=== PATIENT | male | born 1965 | race African-American/Black ===

== ENCOUNTER 2025-08-17 14:29 | Outpatient (AMB) | payer MEDICARE, MEDICAID, SELFPAY ==
--- NOTE | 2025-08-17 15:17 | A.OFFVIS_ITS ---
Intake Visit Reasons: 6M Allergies No Known Allergies Allergy (Verified 08/17/25 15:19) Medication List - Last Reconciled 08/17/25 by Loulou Galicia CNP aspirin 81 mg PO DAILY atorvastatin 10 mg PO DAILY dorzolamide 2% 1 drp ophthalmic (eye) TID glipizide 5 mg PO BID lisinopril 10 mg PO DAILY metformin 1,000 mg PO BID rizatriptan 10 mg PO topiramate 100 mg PO BID 90 days verapamil ER 240 mg PO DAILY HPI Comments Details: 60-year-old man with type II DM, HTN, remote h/o generalized seizure disorder, and severe headaches probably of migraine type. He was doing okay. No seizures. Migraines were controlled and happened infrequently. Rizatriptan as needed helped, has not had to take medication since 05/2025. Sleep was okay. Mood was okay. [facility] Medical History (Updated 08/17/25 @ 15:19 by Loulou Galicia CNP) Migraine Seizure disorder Review of Systems Const Denies chills, Denies daytime sleepiness, Denies difficulty sleeping, Denies fatigue, Denies fever(s), Denies frequent falls, Reports headache(s), Denies increased appetite, Denies poor appetite, Denies snoring, Denies weakness, Denies weight gain and Denies weight loss Eyes Denies loss of vision ENT Denies vertigo, Denies dizziness and Reports headache(s) Card Denies chest pain at rest, Denies chest pain with activity, Denies syncope, Denies leg edema and Denies palpitations Resp Denies snoring GI Denies constipation, Denies heartburn, Denies diarrhea and Denies nausea Denies urinary frequency, Denies urinary incontinence and Denies urinary urgency Musc Denies abnormal gait, Denies numbness and Denies tingling Skin/Breast Denies dry skin and Denies rash Neuro Denies abnormal gait, Denies vertigo, Denies dizziness, Denies syncope, Denies frequent falls, Reports headache(s), Denies lack of coordination, Denies loss of vision, Denies memory loss, Denies numbness, Denies restless legs, Denies seizure-like activity, Denies tingling, Denies paresthesias, Reports tremor(s) and Denies weakness Psych Denies anxiety, Denies depression, Denies auditory hallucinations, Denies memory loss, Denies visual hallucinations and Denies suicidal ideation Endo Denies fatigue and Denies palpitations Physical Exam Const Other: General Appearance:? normal, in no acute distress. Skin:? no rashes, no significant birthmarks. Heart:? S1, S2 normal, no murmurs. Lungs:? clear anteriorly and posteriorly. Extremities:? no edema. Psych:? alert, oriented, cognitive function intact, cooperative with exam. Neuro Other: Mental Status:?Normal attention, orientation, memory and affect.? Cranial Nerves:?Pupils are equal, round and reactive to light. External occular muscles are intact. Visual pressley are full. Face is symmetrical. Facial sensations are normal. Tongue is midline. Palate elevates symmetrically. Shoulder shrugging is normal. Hearing to bedside conversation is normal. Sensory Exam:?....? Coordination:?No ataxia,?no titubation.? Gait Exam: Within normal limits. Cerebellar Signs:?[id number]-[id number] and yidm-qr-[id number] is normal.? Extrapyramidal System:?No tremor, rigidity with normal facial expressions.? Pronator Drift:?Not present.? Involuntary Movements:?Mild bilateral hand tremor, atypical.? Speech:?Normal.? Assessment & Plan Assessment & Plan (1) Migraine: Code(s): G43.909 - Migraine, unspecified, not intractable, without status migrainosus Category: Medical Qualifiers: Migraine type: unspecified Status migrainosus presence: without status migrainosus Intractability: not intractable Qualified Code(s): G43.909 - Migraine, unspecified, not intractable, without status migrainosus Plan: Continue verapamil ER 240mg 1 tablet daily. Continue rizatriptan 10mg 1 tablet as needed. Follow up in 6 months or sooner as needed. (2) Seizure disorder: Code(s): G40.909 - Epilepsy, unspecified, not intractable, without status epilepticus Category: Medical Plan: Continue topiramate 100mg 1 tablet twice a day. Medications: New verapamil ER 240 mg PO DAILY 90 tabs 1RF 90 days rizatriptan take 1 tab at onset of headache; if no relief may repeat 1 tab after at least 4 hrs; max = 2 tabs/24 hr PO 10 tabs 5RF 30 days Discontinued rizatriptan Discontinued Reason: Order 10 mg PO Coding Level of Care Code Est Pt Level 4 (84947) Diagnoses Migraine without status migrainosus, not intractable, unspecified migraine type G43.909 Migraine type: unspecified Status migrainosus presence: without status migrainosus Intractability: not intractable Seizure disorder G40.909
--- OUTSIDE RECORDS SUMMARY | 2025-08-17 22:44 | XMS_ITS | Clinical Summary ---
Author Organization [facility] Address [address] [place] [address] Phone Care Team Providers Care Plow Shaker Name Role Phone Physician, No Pcp Primary Care Provider Unavaila ble Allergies No known active allergies Encounters Date Type Department Care Team Description 06/25/2025 10:00 AM EDT - 06/25/2025 4:57 PM EDT Emergency [facility] Emergency [address] [place] [address] Joseph Rock MD Flores, Carlos M, MD Hypoglycemia secondary to sulfonylurea, accidental or unintentional, initial encounter (Primary Dx) Discharge Disposition: Left Against Medical Advice from Last 3 Months Medical History Medical History Date Comments Diabetes mellitus (CMS/HCC V24, CMS/HCC V28) Social History Tobacco Use Types Packs/Day Years Used Date Smoking Tobacco: Never Smokeless Tobacco: Never Tobacco Cessation:Counseling Given: Not Answered Alcohol Use Standard Drinks/Week Comments Never 0 (1 standard drink = 0.6 oz pur e alcohol) Sex and Gender Information Value Date Recorded Sex Assigned at Not on file Legal Sex Male 7:48 AM EST Gender Identity Not on file Sexual Orientation Not on file Last Filed Vital Signs Vital Sign Reading Time Taken Comments Blood Pressure 182/90 06/25/2025 3:30 PM EDT Pulse 106 06/25/2025 3:30 PM EDT Temperature 36.7 C (98.1 F) 06/25/2025 3:30 PM EDT Respiratory Rate 20 06/25/2025 3:30 PM EDT Oxygen Saturation 100% 06/25/2025 3:30 PM EDT Inhaled Oxygen Concentration - - Weight 77.1 kg (170 lb) 06/25/2025 10:11 AM EDT Height 175.3 cm (5' 9 ) 06/25/2025 10:11 AM EDT Body Mass Index 25.1 06/25/2025 10:11 AM EDT Plan of Treatment Health Maintenance Due Date Last Done Comments Colorectal Cancer Screening: Colonoscopy 1966 Diabetes: Annual Foot Exam 02/20/1976 Diabetes: Annual Retina Eye Exam 02/20/1976 Pneumococcal Vaccine: 50+ Years (2 of 2 - PCV) 11/29/2023 11/28/2022, 01/23/2018 Depression Screening 09/08/2024 COVID-19 Vaccine ( - season) 2025 Influenza Vaccine (#1) 2025 , 08/28/2022, 08/13/2018, Additional history exists Diabetes: Annual Urine Albumin-Creatinine Ratio (uACR) 06/25/2025 04/14/2024, 01/26/2018 Diabetes: Blood Sugar Control Test (HGBA1C) 06/25/2025 04/14/2024 Hepatitis C Screening 06/25/2025 Medicare Annual Wellness Visit 06/25/2025 Social Influencers of Health Screening 06/25/2025 DTaP,Tdap,and Td Vaccines (2 - Td or Tdap) 01/23/2026 01/24/2016 Diabetes: Annual GFR (Glomerular Filtration Rate) 06/25/2026 06/25/2025, 04/14/2024 Hypertension/CHF/CAD Annual BMP Blood Test 06/25/2026 06/25/2025, 04/14/2024 Cholesterol Screening (Lipid Panel) 04/14/2029 04/14/2024, 04/14/2024, 08/28/2022, Additional history exists RSV Immunization Adult Patients (1 - 1-dose 75+ series) 2041 HIV Screening Completed 07/05/2014 Hepatitis B Vaccines Completed 12/07/2018, 06/18/2018, 05/13/2018 Zoster Vaccines Completed 10/10/2023, 11/28/2022 HIB Vaccines Aged Out No longer eligi ble based on patient's age to complete this topic HPV Vaccines Aged Out No longer eligi ble based on patient's age to complete this topic Hepatitis A Vaccines Aged Out No long er eligible based on patient's age to complete this topic IPV Vaccines Aged Out No longer eligi ble based on patient's age to complete this topic MMR Vaccines Aged Out No longer eligi ble based on patient's age to complete this topic Meningococcal ACWY Vaccine Aged Out N o longer eligible based on patient's age to complete this topic Meningococcal B Vaccine Aged Out No l onger eligible based on patient's age to complete this topic RSV Immunization Patients Under 20 months Aged Out No longer eligible based on patient's age to complete this topic Varicella Vaccines Aged Out No longer eligible based on patient's age to complete this topic Procedures Procedure Name Priority Date/Time Associated Diagnosis Comments POCT GLUCOSE BLOOD Routine 06/25/2025 4: 21 PM EDT POCT GLUCOSE BLOOD Routine 06/25/2025 3: 26 PM EDT POCT GLUCOSE BLOOD Routine 06/25/2025 2: 53 PM EDT POCT GLUCOSE BLOOD Routine 06/25/2025 12 :50 PM EDT POCT GLUCOSE BLOOD Routine 06/25/2025 10 :48 AM EDT CBC WITH AUTO DIFFERENTIAL STAT 06/25/2025 10:10 AM EDT MAGNESIUM STAT 06/25/2025 10:10 AM EDT COMPREHENSIVE METABOLIC PANEL STAT 06/25/2025 10:10 AM EDT CBC AND DIFFERENTIAL STAT 06/25/2025 10:10 AM EDT POCT GLUCOSE BLOOD Routine 06/25/2025 9: 57 AM EDT from Last 3 Months Results * POCT Glucose, blood (06/25/2025 4:21 PM EDT) Only the most recent of6 resultswithin the time period is included. [facility] Signature Glucose POCT 80 70 - 100 mg/dL 06/25/2025 4:22 PM EDT [facility] Blood Capillary blood specimen / Unknown 06/25/2025 4:21 PM EDT 06/25/2025 4:23 PM EDT Jarad Ortiz MD LAB POINT OF CARE TE ST DOCKED DEVICE UNSOLICITED RESULTS Final Result [facility] [address] [place] [address], * (ABNORMAL) CBC auto differential (06/25/2025 10:10 AM EDT) WBC 4.1(L) 4.8 - 10.8 K/mcL LAB [facility]OLOG[facility] RBC 4.40(L) 4.50 - 5.50 M/mcL LAB HEMETOLOGY METHOD 06/[facility]2025 [facility] Hemoglobin 11.5(L) 13.5 - 17.5 g/dL LAB HEMETOLOGY METHOD 06/25/2025 10:20 AM [facility] Hematocrit 36.3(L) 42.0 - 54.0 % LAB HEMETOLOGY METHOD 06/25/2025 10:20 AM [facility] MCV 81.9 79.0 - 98.0 FL LAB HEMETOLOGY METHOD 06/25/2025 10:20 AM [facility] MCH 26.0(L) 27.0 - 32.0 pcg LAB HEMETOLOGY METHOD 06/25/2025 10:20 AM [facility] MCHC 31.7(L) 32.0 - 37.0 g/dL LAB HEMETOLOGY METHOD 06/25/2025 10:20 AM [facility] RDW 15.0 11.0 - 15.0 % LAB HEMETOLOGY METHOD 06/25/2025 10:20 AM [facility] Platelets 180 130 - 400 K/mcL LAB HEMETOLOGY METHOD [facility]/25[facility]2025 [facility] MPV 10.8 7.0 - 11.0 FL LAB HEMETOLOGY METHOD 06/25/2025 10:20 AM [facility] NRBC 0.0 <1.0 % LAB HEMETOLOGY METHOD 06/25/2025 10:20 AM [facility] NRBC Absolute 0.00 <0.10 K/mcL LAB HEMETOLOGY METHOD 06/25/2025 10:20 AM [facility] Neutrophils Relative 68.2 % LAB HEMETOLOGY METHOD 06/25/2025 10:20 AM [facility] Lymphocytes Relative 19.4 % LAB HEMETOLOGY METHOD 06/25/2025 10:20 AM [facility] Monocytes Relative 11.7 % LAB HEMETOLOGY METHOD 06/25/2025 10:20 AM [facility] Eosinophils Relative 0.5 % LAB HEMETOLOGY METHOD 06/25/2025 10:20 AM [facility] Basophils Relative 0.0 % LAB HEMETOLOGY METHOD 06/25/2025 10:20 AM [facility] Immature Granulocytes Relative 0.2 % LAB HEMETOLOGY METHOD 06/25/2025 10:20 AM [facility] Neutrophils Absolute 2.81 1.50 - 7.00 K/mcL LAB HEMETOLOGY METHOD 06/25/2025 10:20 AM [facility] Lymphocytes Absolute 0.80(L) 1.00 - 5.00 K/mcL LAB HEMETOLOGY METHOD 06/25/2025 10:20 AM [facility] Monocytes Absolute 0.48 0.20 - 1.00 K/mcL LAB HEMETOLOGY METHOD 06/25/2025 10:20 AM EDT [facility] Eosinophils Absolute 0.02 0.00 - 0.50 K/[facility] HEMETOLOGY METHOD 06/25/2025 10:20 AM EDT [facility] Basophils Absolute 0.00 0.00 - 0.20 K/[facility] HEMETOLOGY METHOD 06/25/2025 10:20 AM EDT [facility] Immature Granulocytes Absolute 0.01 0.00 - 0.03 K/[facility] HEMETOLOGY METHOD 06/25/2025 10:20 AM EDT [facility] Blood Venous blood specimen / Unknown Venipuncture / Unknown 06/25/2025 10:10 AM EDT 06/25/2025 10:15 AM EDT Joseph Rock MD LAB BLOOD ORDERABLES Final Resul t Performing Organization Address City/[facility]/ZIP Co de Phone Number [facility] [address] [place] [address], [place] [phone] * (ABNORMAL) Magnesium (06/25/2025 10:10 AM EDT) Magnesium 1.6(L) 1.9 - 2.6 mg/dL LAB CHEMISTRY METHOD 06/25/2025 10:52 AM EDT [facility] Blood Venous blood specimen / Unknown Venipuncture / Unknown 06/25/2025 10:10 AM EDT 06/25/2025 10:15 AM EDT Joseph Rock MD LAB BLOOD ORDERABLES Final Resul t [facility] [address] [place] [address], [place] [phone] * (ABNORMAL) Comprehensive metabolic panel (06/25/2025 10:10 AM EDT) Sodium 138 133 - 145 mmol/L LAB CHEMISTRY METHOD 06/25/2025 10:53 AM [facility] Potassium 3.9 3.5 - 5.5 mmol/L LAB CHEMISTRY METHOD 06/25/2025 10:53 AM [facility] Chloride 110 96 - 110 mmol/L LAB CHEMISTRY METHOD 06/25/2025 10:53 AM [facility] CO2 20(L) 21 - 32 mmol/L LAB CHEMISTRY METHOD 06/25/2025 10:53 AM [facility] Anion Gap 8 3 - 11 LAB CHEMISTRY METHOD 06/25/2025 10:53 AM [facility] Glucose 163(H) 70 - 100 mg/dL LAB CHEMISTRY METHOD 06/25/2025 10:53 AM [facility] BUN 13 5 - 25 mg/dL LAB CHEMISTRY METHOD 06/25/2025 10:53 AM [facility] Creatinine 0.60(L) 0.70 - 1.30 mg/dL LAB CHEMISTRY METHOD 06/25/2025 10:53 AM [facility] eGFR 111 >=60 mL/min/1. 73m2 LAB CHEMISTRY METHOD 06/25/2025 10:53 AM [facility] Comment:Calculation based on the Chronic Kidney Disease Epidemiology Collaboration (CKD-EPI) equation refit without adjustment for race. BUN/Creatinine Ratio 21.7 LAB CHEMISTRY METHOD 06/25/2025 10:53 AM [facility] Calcium 8.6 8.5 - 10.5 mg/dL LAB CHEMISTRY METHOD 06/25/2025 10:53 AM [facility] AST (SGOT) 41 10 - 42 unit/L LAB CHEMISTRY METHOD 06/25/2025 10:53 AM [facility] ALT (SGPT) 40 10 - 60 unit/L LAB CHEMISTRY METHOD 06/25/2025 10:53 AM [facility] Alkaline Phosphatase 90 42 - 121 unit/L LAB CHEMISTRY METHOD 06/25/2025 10:53 AM EDT [facility] Total Protein 6.4 6.0 - 8.0 g/dL LAB CHEMISTRY METHOD 06/25/2025 10:53 AM EDT [facility] Albumin 3.4 3.2 - 5.0 g/dL LAB CHEMISTRY METHOD 06/25/2025 10:53 AM EDT [facility] Total Bilirubin 0.6 0.0 - 1.4 mg/dL LAB CHEMISTRY METHOD 06/25/2025 10:53 AM EDT [facility] Blood Venous blood specimen / Unknown Venipuncture / Unknown 06/25/2025 10:10 AM EDT 06/25/2025 10:15 AM EDT us Joseph Rock MD LAB BLOOD ORDERABLES Final Resul t [facility] [address] [place] [address], from Last 3 Months Insurance [employer] MED[employer]ARE Care Teams Plow Shaker Relationship Specialty Start Date End Date Physician, No Pcp PCP - General 06/25/25
== END 2025-08-17 15:32 | disposition home or self-care (01) ==
PROVIDERS: PCP Internal Medicine; Referring Provider Internal Medicine; Visit Provider Registered Nurse
DX: G43.909 Migraine, unspecified, not intractable, without status migrainosus (principal); G40.909 Epilepsy, unspecified, not intractable, without status epilepticus
CPT/HCPCS: 99214

== ENCOUNTER → 2025-08-17 14:29 | Outpatient (BNVA) | payer MEDICARE, MEDICAID, SELFPAY | PROVIDERS: PCP Internal Medicine; Referring Provider Internal Medicine; Visit Provider Registered Nurse | DX: G43.909 Migraine, unspecified, not intractable, without status migrainosus (principal) | CPT/HCPCS: 99212 ==